=== PATIENT | female | born 1975 | race Caucasian/White ===

== ENCOUNTER → 2023-10-23 18:40 | Outpatient (REF) | payer BC, SELFPAY | LOC: PAVMRI 18:40 | PROVIDERS: ATTENDING PHYSICIAN Family Medicine | DX: R47.02 Dysphasia (principal); G47.09 Other insomnia; F40.240 Claustrophobia | CPT/HCPCS: 70551 ==

== ENCOUNTER 2023-12-17 10:15 | Outpatient (RCR) | payer BC, SELFPAY | END 2023-12-17 23:59 | disposition home or self-care (01) | LOC: RST 10:15 | PROVIDERS: ATTENDING PHYSICIAN Specialist; FAMILY PHYSICIAN Family Medicine | DX: R41.3 Other amnesia (principal); R41.841 Cognitive communication deficit; R47.02 Dysphasia | CPT/HCPCS: 96125 ==

== ENCOUNTER 2023-12-28 13:51 | Outpatient (RCR) | payer BC, SELFPAY | END 2023-12-28 23:59 | disposition home or self-care (01) | LOC: RST 13:51 | PROVIDERS: ATTENDING PHYSICIAN Specialist; FAMILY PHYSICIAN Family Medicine | DX: R41.3 Other amnesia (principal); R41.841 Cognitive communication deficit; R47.02 Dysphasia | CPT/HCPCS: 97129; 97130 ==

== ENCOUNTER 2024-01-02 22:03 | Emergency (ER) | payer BC, SELFPAY ==
[2024-01-02 22:09] VITALS: BP 109/67
[2024-01-02 22:29] VITALS: BMI 22.7
[2024-01-02 22:31] VITALS: BP 99/62
[2024-01-02 22:46] LABS: % Basophils 0.4 % (0-2); % Eosinophils 1.6 % (0-6); % Immature Granulocytes 0.4 % (0-0.5); % Lymphocytes 28.7 % (20.5-51.1); % Monocytes 11.6 % (1.7-9.3); % Neutrophils 57.3 % (42.2-75.2); Absolute Lymphocytes 0.7 10^3/uL (1.2-3.4); Absolute Monocytes 0.3 10^3/uL (0.1-0.6); Absolute Neutrophils 1.5 10^3/uL (1.4-6.5); Hemoglobin 13.6 g/dL (12.0-16.0); Mean Corp Hgb Conc. 34.9 g/dL (33.0-37.0); Mean Corpuscular Hgb 30.4 pg (27.0-31.0); Mean Corpuscular Volume 87.2 fL (81.0-99.0); Mean Platelet Volume 9.8 fL (7.4-10.4); Nucleated Red Blood Cells % 0 %; Platelet Count 175 10^3/uL (130-400); Red Blood Cell Count 4.47 10^6/uL (4.20-5.40); Red Cell Dist. Width 12.5 % (11.5-14.5); White Blood Cell Count 2.6 10^3/uL (4.8-10.8)
[2024-01-02 23:06] LABS: ALT (SGPT) 47 U/L (0-35); AST (SGOT) 54 U/L (14-36); Albumin 4.3 g/dl (3.5-5.0); Alkaline Phosphatase 48 U/L (38-126); Blood Urea Nitrogen 9 mg/dl (7-17); Calcium 9.2 mg/dl (8.4-10.2); Carbon Dioxide 27 mmol/L (22-30); Chloride 102 mmol/L (98-107); Estimated Creatinine Clearance 67 ml/min; Glucose 90 mg/dl (70-99); Potassium 3.5 mmol/L (3.5-5.1); Sodium 134 mmol/L (135-145); Total Bilirubin 0.4 mg/dl (0.2-1.3); Total Protein 6.9 g/dl (6.3-8.2); eGFR > 60.00
--- NOTE | 2024-01-02 23:29 | ED.GENMED ---
History of Present Illness
General
Chief Complaint: Abdominal Symptoms
Source: patient
Time Seen by Provider: 01/02/24 22:58
Travel History
Have you had any contact with someone who has COVID-19?: No
Do you have any symptoms of coronavirus? Fever > 100 degrees, chills, cough, shortness of breath, sore throat, loss of taste or smell, muscle aches, or headache?: No
History of Present Illness
History of Present Illness:
48-year-old female presents to the emergency room complaining of nausea, diarrhea. Patient also has had occasional fever. No fever today. Patient's daughter had similar symptoms prior to her developing. No recent travel though the patient did
travel to [facility] about 1 month ago. She had no symptoms when she returned. Patient feels lightheaded. No blood in the stool. She thought it appeared mucousy. No recent antibiotic use.
Past History
Past History
ED Past Medical History: Hypothyroidism, Psychiatric (Anxiety, ) and Other (Migraine, Ulcers)
ED Past Surgical History: Cholecystectomy, Orthopedic (Back surgery, Hand surgery, ) and Other (2 surgeries to unblock her bile duct after her cholecystectomy)
Social History
Tobacco: Non-smoker
Alcohol: None
Personal:
Living: with family
Phy Exam
Physical Exam
Physical Exam:
General: Awake, Alert, Oriented X3. No acute distress.
Vitals: unremarkable
Head: Atraumatic
Eyes: Pupils equal, EOMI
Throat: Airway intact, no exudates
Neck: Trachea midline
Lungs: Clear and equal b/l
Heart: Regular rate, no murmurs
Abd: Soft, Nontender, No pulsatile mass
Neuro: Nonfocal
Skin: Warm, dry, no rash
Extremities: pulses equal b/l, no edema
Course
Orders/Labs/Results
Orders:
Orders
01/02/24 22:41
CMP [Comprehensive Metabolic Panel] Urgent
Complete Blood Count/With Diff Urgent
01/02/24 23:28
0.9% Sodium Chloride 1000 ml [Nss] 1,000 ml IV BOLUS
Abnormal Lab Results
01/02/24
22:41
WBC 2.6 L 10^3/uL
(4.8-10.8)
Absolute Lymphs (auto) 0.7 L 10^3/uL
(1.2-3.4)
Monocytes % 11.6 H %
(1.7-9.3)
Sodium 134 L mmol/L
(135-145)
AST 54 H U/L
(14-36)
ALT 47 H U/L
(0-35)
01/02/24 22:41
01/02/24 22:41
Vital Signs
Initial and Last Documented VS:
Initial Vital Signs
Temp Pulse Resp BP Pulse Ox
99 F 72 16 109/67 100
01/02/24 22:09 01/02/24 22:09 01/02/24 22:09 01/02/24 22:09 01/02/24 22:09
Last Documented Vital Signs
Temp Pulse Resp BP Pulse Ox
99 F 72 16 103/61 100
01/02/24 22:09 01/02/24 22:09 01/02/24 22:09 01/03/24 01:03 01/03/24 01:00
MDM/Problems Addressed
Differential Diagnosis Includes:
Dehydration, viral gastroenteritis, C. difficile, bacterial diarrhea
MDM/Problems Addressed:
Patient's exam is benign. She may appear slightly dry. She describes symptoms of perhaps mild dehydration. IV fluid provided. Labs show a mild decrease white blood cell count consistent with a viral illness. Patient does not have a abdominal
exam to suggest any serious intra-abdominal pathology. She was unable to provide a stool sample likely due to taking Imodium at home. Patient stable for discharge home
*Pulse Oximetry
Patient hypoxic: no
*Critical Care Note
Total Time (30-74mins, 75-104mins- exclusive of procedures): Not Applicable
ED Attending Note
-
Portions of this chart may have been created with voice recognition software.� Occasional wrong word or��sound alike� substitutions may have occurred due to the inherent limitations of voice recognition software.
Discharge Plan
Departure
Patient Disposition: Home (Routine Discharge)
Date of Disposition: 01/03/24
Time of Disposition: 01:25
Patient with high blood pressure during this ER visit?: No
Condition: Good
Discharge Problem:
Diarrhea
Instructions: Acute Diarrhea
Prescriptions:
No Action
escitalopram oxalate 10 MG tablet
10 mg PO HS
clonazepam 0.5 mg tablet
0.5 mg PO HS PRN (Reason: anxiety)
Patient Comments:
05/02/2023: last filled 03/16/23, 30 tabs for 30 days from [facility]
pantoprazole 40 mg tablet,delayed release (DR/EC)
40 mg PO BID
Linzess 145 mcg Capsule
145 mcg PO DAILY@0700 Qty: 30 2RF
polyethylene glycol 3350 [HealthyLax] 17 gram Powder In Packet
17 g PO BID Qty: 30 0RF
Referrals:
Dean Myers MD [Family Provider] -
Interventions
Interventions:
*Risk Screen - Suicide Last Done: 01/02/24 22:09
*General Assessment Last Done: 01/02/24 22:09
*Neglect/Abuse Screening Last Done: 01/02/24 22:09
ED- Fall Risk Assessment Last Done: 01/02/24 22:30
*ED COVID-19 Vaccine History Last Done: 01/02/24 22:30
*Nursing Disposition Last Done: 01/03/24 01:33
PW-Zcmnju-Uvfkqjzfdk Assessment Last Done: 01/02/24 22:30
Discharge Date and Time
Discharge Date/Time: 01/03/24 01:34
Print Language: OMANI
[2024-01-02] MEDS: NSS 1000 IV (23:45)
[2024-01-02 23:48] VITALS: BP 94/54
[2024-01-03 00:24] VITALS: BP 92/51
[2024-01-03 00:57] VITALS: BP 99/55
[2024-01-03 00:58] VITALS: BP 99/62
[2024-01-03 01:00] VITALS: BP 93/60
[2024-01-03 01:03] VITALS: BP 103/61
== END 2024-01-03 01:34 | disposition home or self-care (01) ==
LOC: EMR 22:03
PROVIDERS: EMERGENCY PHYSICIAN Emergency Medicine; FAMILY PHYSICIAN Family Medicine
DX: R19.7 Diarrhea, unspecified (principal); E03.9 Hypothyroidism, unspecified; F41.9 Anxiety disorder, unspecified; Z90.49 Acquired absence of other specified parts of digestive tract
CPT/HCPCS: 99283; 80053; 85025

== ENCOUNTER 2024-01-03 17:21 | Emergency (ER) | payer BC, SELFPAY ==
[2024-01-03 17:24] VITALS: BP 87/60
[2024-01-03 17:52] LABS: % Basophils 0.4 % (0-2); % Eosinophils 1.1 % (0-6); % Immature Granulocytes 0.4 % (0-0.5); % Lymphocytes 32.8 % (20.5-51.1); % Monocytes 13.6 % (1.7-9.3); % Neutrophils 51.7 % (42.2-75.2); Absolute Lymphocytes 0.9 10^3/uL (1.2-3.4); Absolute Monocytes 0.4 10^3/uL (0.1-0.6); Absolute Neutrophils 1.4 10^3/uL (1.4-6.5); Hematocrit 37.3 % (37.0-47.0); Hemoglobin 12.8 g/dL (12.0-16.0); Mean Corp Hgb Conc. 34.3 g/dL (33.0-37.0); Mean Corpuscular Hgb 30.2 pg (27.0-31.0); Mean Platelet Volume 10.1 fL (7.4-10.4); Nucleated Red Blood Cells % 0 %; Platelet Count 175 10^3/uL (130-400); Red Blood Cell Count 4.24 10^6/uL (4.20-5.40); Red Cell Dist. Width 12.6 % (11.5-14.5); White Blood Cell Count 2.7 10^3/uL (4.8-10.8)
[2024-01-03 18:02] LABS: HCG, Serum Qualitative Screen Negative
[2024-01-03 18:05] LABS: ALT (SGPT) 46 U/L (0-35); AST (SGOT) 53 U/L (14-36); Albumin 4.2 g/dl (3.5-5.0); Alkaline Phosphatase 44 U/L (38-126); Blood Urea Nitrogen 6 mg/dl (7-17); Carbon Dioxide 22 mmol/L (22-30); Chloride 110 mmol/L (98-107); Glucose 95 mg/dl (70-99); Lipase 115 U/L (23-300); Potassium 3.3 mmol/L (3.5-5.1); Sodium 138 mmol/L (135-145); Total Bilirubin 0.3 mg/dl (0.2-1.3); Total Protein 6.6 g/dl (6.3-8.2); eGFR > 60.00
[2024-01-03 20:43] VITALS: BP 92/57; BMI 23.7
--- NOTE | 2024-01-03 20:56 | ED.GENMED ---
History of Present Illness
General
Chief Complaint: Abdominal Symptoms
Source: patient
Exam Limitations: none
Time Seen by Provider: 01/03/24 19:42
Travel History
Have you had any contact with someone who has COVID-19?: No
Do you have any symptoms of coronavirus? Fever > 100 degrees, chills, cough, shortness of breath, sore throat, loss of taste or smell, muscle aches, or headache?: No
History of Present Illness
History of Present Illness:
This is a 48 year old female that comes in with c/o diarrhea. States that her GI doctor, Dr. Lambert called her today to come to the ER for IV fluids. Patient states that she has had continues diarrhea since Sunday. Today has been the most controlled
its been. Patient states that she was here last night after she took Imodium 2 tablets before coming. States that she went home and had a snack of Ostor Crackers and she started again with explosive diarrhea. States that she took 4 stool samples to
quest today for Dr Lambert. States that she had not gotten the results back yet. States that all last week she had a fever of 100.1 and it went down yesterday. States that she had nausea but not today. States that she has also been lightheaded. Denies
any chest pain, SOB, abd pain, vomiting, headache, urinary burning.
Past History
Past History
ED Past Medical History: Hypothyroidism, Psychiatric (Anxiety, ) and Other (Migraine, Ulcers, MRSA history, )
ED Past Surgical History: Cholecystectomy, Orthopedic (Back surgery, Hand surgery, Pin in the left leg) and Other (2 surgeries to unblock her bile duct after her cholecystectomy)
Social History
Tobacco: Non-smoker
Alcohol: None
Personal:
Living: with family
Review of Systems
Review of Systems
All Other Systems: ROS reviewed and negative except as documented in HPI and ROS
Constitutional: Reports fever (Stopped yesterday); Denies chills
EENT: Reports no symptoms
Respiratory: Reports no symptoms; Denies cough or trouble breathing
Cardiac: Reports no symptoms; Denies chest pain
ABD/GI: Reports nausea and diarrhea; Denies abdominal pain or vomiting
: Reports no symptoms; Denies dysuria, frequency or urgency
Musculoskeletal: Reports no symptoms
Skin: Reports no symptoms
Neurological: Reports dizzy (Lightheadedness); Denies headache
Psychiatric: Reports no symptoms
Phy Exam
General Physical Exam
General Presentation: no apparent distress
General age: appears stated age
General Skin: warm and dry
General Habitus: normal
General Mental: alert
General Hydration: appears well hydrated
ENT Exam
ENT Exam: TM's normal, pharynx normal and neck supple
Eye Exam
Eye Exam: EOMI
Cardiovascular Exam
Cardiovascular Exam: regular rate/rhythm, no edema, no murmur and normal peripheral pulses
Pulmonary Exam
Pulmonary Exam: lungs clear, no respiratory distress, no rales, chest non tender, no crackles, no rhonchi, no wheezing and no cough
Gastrointestinal Exam
Gastrointestinal Exam: non tender, soft, no organomegaly, no pulsatile mass, non distended and other (Hyperactive bowel sounds Rectal exam greenish stool, hem negative)
Musculoskeletal Exam
Musculoskeletal Exam: full ROM and no edema
Skin Exam
Skin Exam: normal color, warm/dry, no rash and no petechia
Psychiatric Exam
Psychiatric Exam: normal mood/affect
Course
Orders/Labs/Results
Orders:
Orders
01/03/24 17:27
Test Result ONCE
01/03/24 17:40
Complete Blood Count/With Diff Urgent
Comprehensive Metabolic Panel Urgent
HCG, Serum Qualitative Screen Urgent
Lipase Urgent
01/03/24 21:22
Iohexol [Omnipaque] See Protocol PO NOW STA
01/03/24 21:23
CT Abd/pel W Iv And Oral Contr Urgent
Comment:
Reason For Exam: nasuea, diarrhea, abd pain
0.9% Sodium Chloride 1000 ml [Nss] 1,000 ml IV BOLUS
01/03/24 21:58
Pantoprazole [Protonix IV] 40 mg .ROUTE .STK-MED ONE
01/03/24 23:20
Sucralfate Suspension [Carafate Suspension] 1 gm .ROUTE .STK-MED ONE
01/03/24 23:27
Sucralfate Suspension [Carafate Suspension] 1 gm PO NOW STA
01/03/24 23:30
0.9% Sodium Chloride 1000 ml [Nss] 1,000 ml IV 1,000 mls/hr
Abnormal Lab Results
01/03/24
17:40
WBC 2.7 L 10^3/uL
(4.8-10.8)
Absolute Lymphs (auto) 0.9 L 10^3/uL
(1.2-3.4)
Monocytes % 13.6 H %
(1.7-9.3)
Potassium 3.3 L mmol/L
(3.5-5.1)
Chloride 110 H mmol/L
(98-107)
BUN 6 L mg/dl
(7-17)
AST 53 H U/L
(14-36)
ALT 46 H U/L
(0-35)
01/03/24 17:40
01/03/24 17:40
Leukopenia, Hypokalemia, Chloride elevation. AST/ALT slightly elevated. Lipase normal at 115, HCG negative.
Vital Signs
Initial and Last Documented VS:
Initial Vital Signs
Temp Pulse Resp BP Pulse Ox
98.2 F 71 18 87/60 100
01/03/24 17:24 01/03/24 17:24 01/03/24 17:24 01/03/24 17:24 01/03/24 17:24
Last Documented Vital Signs
Temp Pulse Resp BP Pulse Ox
98.1 F 50 20 85/52 98
01/03/24 20:43 01/04/24 00:26 01/04/24 00:26 01/04/24 00:26 01/04/24 00:26
MDM/Problems Addressed
Differential Diagnosis Includes:
Enteritis, Colitis, C-diff (patient had stool cutlure sent today at [facility])
MDM/Problems Addressed:
This is a 48 year old female that comes in with c/o diarrhea since Sunday. States that Dr. Lambert told her to come in for IV fluids. States that she had a fever until yesterday and has felt cold. States that she was nauseated but not at this time.
States that she was also lightheaded.
Will check labs, give IV fluids and get CT scan to r/o enteritis, colitis.
Back into see patient. Explained that her CT shows Enteritis. Her diarrhea should go away on its own. Patient to stay away from milk and milk products until the diarrhea stops. Increase her water intake to 8-8oz glasses daily. Patient can eat
Banana's that will help with binding, chicken, rice and potatoes are easily digested. Patient to follow up with the PCP. Return with any concerns.
Chronic conditions affecting care:
NA
Acute Exacerbation and/or Progression of Chronic Illness:
NA
*Radiology
Radiology exam reviewed: radiology read reviewed (CT scan-Mildly prominent loops of small bowel throughout the abdomen, with air-fluid levels, likely represents underlyiing enteritis. No bowel obstruction. Status post cholecystectomy. Normal
appendix. Incidentals: Trace free fluid in the deep pelvis. NO obstructive uropathy. No hepatic or ) and other (CT cont- or pancreatic mass. No abdominal aortic aneurysm. NO acute osseous abnormality. Bibasilar atelectasis. No acute abnormality
within the visualized soft tissues. )
*Pulse Oximetry
Patient hypoxic: no
*EKG
Interpreted by ED Provider?: NA
Rate: EKG- N/A
*Deck Scaler Interpretation
Rate: Deck Scaler- N/A
*Critical Care Note
Total Time (30-74mins, 75-104mins- exclusive of procedures): Not Applicable
ED Attending Note
-
Portions of this chart may have been created with voice recognition software.� Occasional wrong word or��sound alike� substitutions may have occurred due to the inherent limitations of voice recognition software.
Discharge Plan
Departure
Patient Disposition: Home (Routine Discharge)
Date of Disposition: 01/04/24
Time of Disposition: 00:45
Patient with high blood pressure during this ER visit?: No
Condition: Good
Covid-19: Not Applicable
Discharge Problem:
Enteritis
Instructions: Diarrhea in teens and adults
Prescriptions:
No Action
escitalopram oxalate 10 MG tablet
10 mg PO HS
clonazepam 0.5 mg tablet
0.5 mg PO HS PRN (Reason: anxiety)
Patient Comments:
05/02/2023: last filled 03/16/23, 30 tabs for 30 days from [facility]
pantoprazole 40 mg tablet,delayed release (DR/EC)
40 mg PO AMHS
levothyroxine [Synthroid] 25 mcg Tablet
25 mcg PO DAILY
famotidine 20 mg Tablet
20 mg PO DAILY
Referrals:
Dean Myers MD [Family Provider] - Call in 1-3 days for appt
Activity Restrictions/Additional Instructions:
As discussed, your blood work shows that your White blood cell count is slightly low. Your Potassium is slightly low and your Liver enzymes are very slightly elevated. This can happen with a viral illness. Please increase your water intake to 8-8oz
glasses daily. Your CT shows that you have Enteritis. This will go away on its own. Please stay away from milk and milk products as long as the diarrhea continues. Chicken, rice and potatoes are easily digested. Banana's are also binding. Follow up
with the family doctor for recheck. IF YOU HAVE ANY OTHER CONCERNS PLEASE RETURN TO THE EMERGENCY ROOM.
Interventions
Interventions:
*Risk Screen - Suicide Last Done: 01/03/24 17:24
*General Assessment Last Done: 01/03/24 17:24
*Neglect/Abuse Screening Last Done: 01/03/24 17:24
ED- Fall Risk Assessment Last Done: 01/03/24 20:48
*ED COVID-19 Vaccine History Last Done: 01/03/24 17:24
BU-Uvemfz-Bswjbtpwzf Assessment Last Done: 01/03/24 20:48
Discharge Date and Time
Print Language: SINHALA
[2024-01-03] MEDS: NSS 1000 IV ×2 (21:48→23:29)
[2024-01-03] MEDS: OMNIPAQUE 50 ML PO (21:52)
[2024-01-03 22:01] VITALS: BP 84/48
[2024-01-03 23:24] VITALS: BP 88/52
[2024-01-03] MEDS: CARAFATE SUSPENSION 1 GM PO (23:27)
[2024-01-04 00:26] VITALS: BP 85/52
[2024-01-04 01:00] VITALS: BP 88/52
== END 2024-01-04 01:15 | disposition home or self-care (01) ==
LOC: EMR 17:21
PROVIDERS: EMERGENCY PHYSICIAN Emergency Medicine; FAMILY PHYSICIAN Family Medicine
DX: K52.9 Noninfective gastroenteritis and colitis, unspecified (principal); E03.9 Hypothyroidism, unspecified; F41.9 Anxiety disorder, unspecified
CPT/HCPCS: 99284; 96360; 96361; 74177; 80053; 83690; 84703; 85025; Q9967

== ENCOUNTER 2024-02-19 12:38 | Outpatient (RCR) | payer BC, SELFPAY | END 2024-02-19 23:59 | disposition home or self-care (01) | LOC: RST 12:38 | PROVIDERS: ATTENDING PHYSICIAN Specialist; FAMILY PHYSICIAN Family Medicine | DX: R41.3 Other amnesia (principal); R41.841 Cognitive communication deficit; R47.02 Dysphasia | CPT/HCPCS: 97129; 97130 ==

== ENCOUNTER → 2024-04-18 08:48 | Outpatient (REF) | payer BC, SELFPAY | LOC: RAD 08:48 | PROVIDERS: ATTENDING PHYSICIAN Student in an Organized Health Care Education/Training Program; FAMILY PHYSICIAN Family Medicine | DX: R10.11 Right upper quadrant pain (principal) | CPT/HCPCS: 76700 ==

== ENCOUNTER 2024-05-22 17:51 | Emergency (ER) | payer BC, SELFPAY ==
[2024-05-22] VITALS (12 sets, daily range): BP systolic 91–109; BP diastolic 51–80; PULSE 53–78
[2024-05-22 19:31] LABS: % Basophils 1.3 % (0-2); % Eosinophils 1.7 % (0-6); % Immature Granulocytes 0.2 % (0-0.5); % Lymphocytes 33.6 % (20.5-51.1); % Monocytes 10.1 % (1.7-9.3); % Neutrophils 53.1 % (42.2-75.2); Absolute Basophils 0.1 10^3/uL (0-0.2); Absolute Eosinophils 0.1 10^3/uL (0-0.7); Absolute Lymphocytes 1.6 10^3/uL (1.2-3.4); Absolute Monocytes 0.5 10^3/uL (0.1-0.6); Absolute Neutrophils 2.5 10^3/uL (1.4-6.5); Hematocrit 38.7 % (37.0-47.0); Hemoglobin 13.1 g/dL (12.0-16.0); Mean Corp Hgb Conc. 33.9 g/dL (33.0-37.0); Mean Corpuscular Hgb 29.4 pg (27.0-31.0); Mean Corpuscular Volume 86.8 fL (81.0-99.0); Mean Platelet Volume 9.9 fL (7.4-10.4); Nucleated Red Blood Cells % 0 %; Platelet Count 212 10^3/uL (130-400); Red Blood Cell Count 4.46 10^6/uL (4.20-5.40); Red Cell Dist. Width 12.4 % (11.5-14.5); White Blood Cell Count 4.7 10^3/uL (4.8-10.8)
[2024-05-22 19:51] LABS: ALT (SGPT) 23 U/L (0-35); AST (SGOT) 30 U/L (14-36); Albumin 4.7 g/dl (3.5-5.0); Alkaline Phosphatase 66 U/L (38-126); Blood Urea Nitrogen 21 mg/dl (7-17); Calcium 9.7 mg/dl (8.4-10.2); Carbon Dioxide 26 mmol/L (22-30); Chloride 102 mmol/L (98-107); Glucose 84 mg/dl (70-99); Potassium 3.9 mmol/L (3.5-5.1); Sodium 140 mmol/L (135-145); Total Bilirubin 0.3 mg/dl (0.2-1.3); Total Protein 7.3 g/dl (6.3-8.2); eGFR > 60.00
--- NOTE | 2024-05-22 21:10 | ED.GENMED ---
History of Present Illness
General
Chief Complaint: Fainting Sensation
Source: patient
Exam Limitations: none
Time Seen by Provider: 05/22/24 19:48
Nursing documentation reviewed up to this point in time: agreed with
History of Present Illness
History of Present Illness:
49-year-old female with past medical history of migraines, hypothyroidism who presents to the ER for evaluation of lightheadedness. Patient reports that symptoms started earlier today prior to going to get her hair done. She says that while she
was at the hairdresser sitting in the chair she felt lightheaded and when they finished with her and she stood up she felt severely lightheaded as if she might pass out. She says she sat down and drink some water but lightheadedness never
completely went away and so she came to the ER. She still feels mildly lightheaded but not quite as severe here in the ER. She says she has not had any palpitations, chest pain, shortness of breath. Denies any headache. She denies any abdominal
or flank pain. She denies any recent bleeding including vaginal bleeding or GI bleeding. She is postmenopausal. She denies any other complaints.
Past History
Past History
ED Past Medical History: Hypothyroidism, Psychiatric (Anxiety, ) and Other (Migraine, Ulcers, MRSA history, )
ED Past Surgical History: Cholecystectomy, Orthopedic (Back surgery, Hand surgery, Pin in the left leg) and Other (2 surgeries to unblock her bile duct after her cholecystectomy)
Social History
Tobacco: Non-smoker
Alcohol: None
Personal:
Living: with family
Review of Systems
Review of Systems
All Other Systems: ROS reviewed and negative except as documented in HPI and ROS
Constitutional: Denies fever
Respiratory: Denies cough or trouble breathing
Cardiac: Denies chest pain or palpitations
ABD/GI: Denies abdominal pain, nausea or vomiting
: Denies flank pain or bleeding
Musculoskeletal: Denies neck pain or back pain
Neurological: Reports dizzy; Denies headache
Phy Exam
Physical Exam
Physical Exam:
General: Awake, alert, oriented x3; no acute distress
Head: Normocephalic, atraumatic
Eyes: Conjunctiva normal, pupils equal round and reactive to light bilaterally
Throat: Airway intact, handling secretions
Neck: Trachea midline, supple without meningismus
Lungs: Clear to auscultation bilaterally, no wheezing, rales, rhonchi
Heart: Regular rate and rhythm, no murmurs, gallops, or rubs
Abd: Soft, non distended, nontender
Neuro: No gross deficit
Skin: no rash
Extremities: No edema in extremities, equal pulses in all extremities
Scores
Heart Failure Risk
Heart Failure Risk Score: Not Applicable
Heart Score for Chest Pain Patients
STEMI patient?: Not applicable
Withdrawal Assessment of Alcohol
Withdrawal Assessment Completed?: Not applicable
Course
Orders/Labs/Results
Orders:
Orders
05/22/24 17:53
Electrocardiogram (*1) Urgent
Reason for Study: Syncope
EKG- Treatment ONCE
05/22/24 19:25
Complete Blood Count/With Diff Urgent
Comprehensive Metabolic Panel Urgent
05/22/24 19:49
Orthostatic VS- Treatment ONCE
05/22/24 21:11
0.9% Sodium Chloride 1000 ml [Nss] 1,000 ml IV BOLUS
Abnormal Lab Results
05/22/24
19:25
WBC 4.7 L 10^3/uL
(4.8-10.8)
Monocytes % 10.1 H %
(1.7-9.3)
BUN 21 H mg/dl
(7-17)
05/22/24 19:25
05/22/24 19:25
Vital Signs
Blood pressure: 101/80
Initial and Last Documented VS:
Initial Vital Signs
Temp Pulse Resp BP Pulse Ox
36.7 C 56 20 109/65 100
05/22/24 17:53 05/22/24 17:53 05/22/24 17:53 05/22/24 17:53 05/22/24 17:53
Last Documented Vital Signs
Temp Pulse Resp BP Pulse Ox
36.7 C 57 25 91/65 98
05/22/24 17:53 05/22/24 21:30 05/22/24 21:30 05/22/24 21:24 05/22/24 21:24
MDM/Problems Addressed
Differential Diagnosis Includes:
Dysrhythmia, anemia, dehydration/electrolyte derangement
MDM/Problems Addressed:
49-year-old female presents for evaluation of lightheadedness over the past few hours that was much worse when she stood up from prolonged sitting at the hairdresser. Symptoms have improved slightly but now resolved here still feels mildly
lightheaded. No other complaints noted. Soft blood pressure on arrival, otherwise normal vitals. Physical exam as above. Check labs including CBC and CMP. Check an EKG. Provide some fluids. Reassess after the above.
Labs reviewed: CBC shows no anemia, CMP shows slightly elevated BUN�IV fluids in progress. Her EKG shows sinus rhythm with no high-grade AV block, no Brugada, no QTc prolongation, no delta wave, no ectopy. Continue to monitor.
Symptoms slightly improved after fluids, vitals have been stable�blood pressure improved now 101/80. Patient feels well enough for discharge home, will follow-up with her primary care physician. Possible mild dehydration with elevated BUN and soft
blood pressure. With improved vitals and symptoms, stable for discharge.
*Pulse Oximetry
Patient hypoxic: no
*EKG
Interpreted by ED Provider?: Yes
Heart Rate: 56
Rate: bradycardiac
Rhythm: sinus
[place]: normal axis
Interval: first degree heart block
QRS Pattern: normal QRS
Ischemia: no ischemia
*Critical Care Note
Total Time (30-74mins, 75-104mins- exclusive of procedures): Not Applicable
Data Reviewed
Review of Other/Old Records Reveals: Labs and Records
Source: patient
ED Attending Note
-
Portions of this chart may have been created with voice recognition software.� Occasional wrong word or��sound alike� substitutions may have occurred due to the inherent limitations of voice recognition software.
Discharge Plan
Departure
Patient Disposition: Home (Routine Discharge)
Date of Disposition: 05/22/24
Time of Disposition: 22:15
Patient with high blood pressure during this ER visit?: No
Discharge Problem:
Lightheadedness
Instructions: Near Fainting (DC)
Prescriptions:
No Action
escitalopram oxalate 10 MG tablet
10 mg PO HS
clonazepam 0.5 mg tablet
0.5 mg PO HS PRN (Reason: anxiety)
Patient Comments:
05/02/2023: last filled 03/16/23, 30 tabs for 30 days from [facility]
pantoprazole 40 mg tablet,delayed release (DR/EC)
40 mg PO AMHS
levothyroxine [Synthroid] 25 mcg Tablet
25 mcg PO DAILY
famotidine 20 mg Tablet
20 mg PO DAILY
Referrals:
Dean Myers MD [Family Provider] - Call in 1-3 days for appt
Activity Restrictions/Additional Instructions:
Thank you for visiting the Emergency Department at [facility].
1. Please schedule a follow up appointment as directed. Call first thing tomorrow morning to make an appointment.
2. If indicated, please take your medications as instructed and indicated on discharge paperwork.
3. If any of your symptoms do not improve, or persist, or become more severe within 6-12 hours, please return to the emergency department for further care.
4. Please return to the emergency department if you develop a headache, neck pain/stiffness, fever greater than 100.4F, chest pain, shortness of breath, persistent nausea, vomiting, slurred speech, difficulty walking, numbness/tingling, weakness,
signs of infection or any other symptoms that are worrisome to you.
Please call [phone] if you have any questions.
Interventions
Interventions:
*Risk Screen - Suicide Last Done: 05/22/24 17:53
*General Assessment Last Done: 05/22/24 17:53
*Neglect/Abuse Screening Last Done: 05/22/24 17:53
ED- Cardiac Assessment Last Done: 05/22/24 21:11
ED- Neurological Assessment Last Done: 05/22/24 21:11
Discharge Date and Time
Print Language: KOREAN
[2024-05-22] MEDS: NSS 1000 IV (21:22)
== END 2024-05-22 22:32 | disposition home or self-care (01) ==
LOC: EMR 17:51
PROVIDERS: Student in an Organized Health Care Education/Training Program; EMERGENCY PHYSICIAN Emergency Medicine; FAMILY PHYSICIAN Family Medicine
DX: R42 Dizziness and giddiness (principal); E03.9 Hypothyroidism, unspecified
CPT/HCPCS: 99284; 96360; 80053; 85025; 93005

== ENCOUNTER 2024-09-05 06:28 | Day surgery (SDC) | payer BC, SELFPAY | END 2024-09-05 14:21 | disposition home or self-care (01) | LOC: GI 06:28 | PROVIDERS: ATTENDING PHYSICIAN Internal Medicine Gastroenterology | DX: R10.13 Epigastric pain (principal); K44.9 Diaphragmatic hernia without obstruction or gangrene; K31.89 Other diseases of stomach and duodenum; K25.9 Gastric ulcer, unspecified as acute or chronic, without hemorrhage or perforation | CPT/HCPCS: 43239; 88305; 88342 ==

== ENCOUNTER → 2024-09-22 19:49 | Outpatient (REF) | payer BC, SELFPAY | LOC: WDC 19:49 | PROVIDERS: ATTENDING PHYSICIAN Nurse Practitioner Family; FAMILY PHYSICIAN Family Medicine | DX: Z12.31 Encounter for screening mammogram for malignant neoplasm of breast (principal) | CPT/HCPCS: 77063; 77067 ==